=== PATIENT | male | born 1945 | race Caucasian/White ===

== ENCOUNTER → 2016-11-16 | Outpatient (CLI) | payer MEDICARE, BC ==
[~2016-11-16] MED LIST: ABILIFY2 MG PO; ABILIFY20 MG PO; AMOXICILLIN 8751 TAB PO; ASPIR-LOW81 MG PO; ASPIRIN 32325 MG/TAB PO; ASPIRIN 81M81 MG/TA2 PO; ASPIRIN E.C. 8181 MG PO; AVELOX 400MG T400 MG PO; CALCIUM WITH VI1 TAB PO; CEPHALEXIN250 M1 PO; CEPHALEXIN500 M1 PO; CIPRO 500MG TA500 MG PO; COLACE 100100 MG/CAP PO; CRANBERRY1 CAP PO; CRESTOR20 MG PO; DEPO-TESTOS200 MG/M1 IM; DESYREL 100MG100 MG PO; DILAUDID 2MG TAB2 MG PO; DILAUDID 4MG TAB4 MG PO; FLAGYL500 MG PO; LEVAQUIN 5500 MG/TA1 PO; MACRODANTIN50 MG/CA1 PO; MIRALAX PA17 GM/Dose PO; MULTIPLE VITAMI1 CAP PO; NAPROSYN; NAPROSYN 2250 MG/TAB PO; NORCO 325 MG-51 TAB PO; OMNICEF 300MG300 MG PO; PERCOCET 325 MG1 TA2 PO; PHENERGAN 25 TA25 MG PO; PRIL40; PRILOSEC 20MG20 MG PO; RANITIDINE150 MG PO; SIMVASTATIN40 MG PO; STOOL SOFTENER100 M1 PO; TRAZADONE HYDR100 MG PO; TRAZODONE HCL100 MG PO; TRAZODONE100 MG PO; TYLENOL 325MG325 MG PO; TYLENOL 500MG500 MG PO; ULTRAM 50MG TAB50 MG PO; VICODIN 5/5001 UDTAB PO; VIIBRYD10 MG PO; VITAMIN C500 MG PO; WELLBUTRIN XL300 M1 PO; WELLBUTRIN XL300 MG PO; XANAX .25M0.25 MG/TA PO; ZANTAC 150MG T150 MG PO; ZOCOR 20MG20 MG PO; ZYRTEC 10MG10 MG PO; ZYRTEC10 MG PO
== END ==
LOC: COL.RAD 14:24
DX: K57.30 Diverticulosis of large intestine without perforation or abscess without bleeding (principal); R10.84 Generalized abdominal pain; Z90.5 Acquired absence of kidney; Z90.6 Acquired absence of other parts of urinary tract

== ENCOUNTER → 2017-04-13 | Outpatient (CLI) | payer MEDICARE, BC | LOC: BHSO 14:24 | DX: F41.1 Generalized anxiety disorder (principal) ==

== ENCOUNTER → 2017-06-11 | Outpatient (CLI) | payer MEDICARE, BC ==
[2017-06-11 17:43] LABS: CREATININE, serum 1.28 mg/dL (0.66-1.25)
== END ==
LOC: COL.LAB 17:03
PROVIDERS: Otolaryngology
DX: H92.01 Otalgia, right ear (principal)

== ENCOUNTER → 2018-06-12 | Outpatient (CLI) | payer MEDICARE, BC | LOC: BHSO 09:03 | DX: F33.41 Major depressive disorder, recurrent, in partial remission (principal) | CPT/HCPCS: G0463 ==

== ENCOUNTER → 2018-08-08 | Outpatient (CLI) | payer MEDICARE, BC | LOC: BHSO 10:59 | DX: F33.1 Major depressive disorder, recurrent, moderate (principal) | CPT/HCPCS: G0463 ==

== ENCOUNTER → 2018-12-04 | Outpatient (CLI) | payer MEDICARE, BC | LOC: BHSO 11:21 | DX: F33.42 Major depressive disorder, recurrent, in full remission (principal) | CPT/HCPCS: G0463 ==

== ENCOUNTER → 2018-12-05 | Outpatient (CLI) | payer MEDICARE, BC | LOC: COL.RAD 09:00 | DX: Z85.51 Personal history of malignant neoplasm of bladder (principal); Z90.49 Acquired absence of other specified parts of digestive tract; Z90.5 Acquired absence of kidney ==

== ENCOUNTER → 2019-02-19 | Outpatient (CLI) | payer MEDICARE, BC | LOC: COL.RAD 13:33 | DX: R10.30 Lower abdominal pain, unspecified (principal); Z90.5 Acquired absence of kidney; Z90.49 Acquired absence of other specified parts of digestive tract ==

== ENCOUNTER → 2019-02-26 | Outpatient (CLI) | payer MEDICARE, BC | LOC: BHSO 13:27 | DX: F33.41 Major depressive disorder, recurrent, in partial remission (principal) | CPT/HCPCS: G0463 ==

== ENCOUNTER 2019-04-06 11:45 | Emergency (ER) | payer MEDICARE, BC ==
[~2019-04-06] VITALS: Ht 175.3 cm; Wt 89.5 kg
[2019-04-06] MEDS ORDERED: EFFEXOR-XR150 MG PO (12:07)
[2019-04-06] MEDS ORDERED: LINZESS72 MCG PO (12:09)
[2019-04-06] MEDS ORDERED: LAMICTAL ODT100 MG (12:10)
[2019-04-06] MEDS ORDERED: AMBIEN CR 12.12.5 MG PO (12:31)
[2019-04-06 12:42] LABS: BASO % 0.2 % (0.0-2.0); EOS % 0.5 % (0-4.0); GRAN # 6.6 (1.4-6.5); GRAN % 80.1 % (42.2-75.2); HEMATOCRIT 40.5 % (42.0-52.0); HEMOGLOBIN 13.8 g/dl (13.5-18.0); LYMPH # 0.8 (1.2-3.4); LYMPH % 9.9 % (20.0-51.0); MEAN CELL VOLUME 87 fl (80.0-100.0); MEAN CORPUSCULAR HEMOGLOBIN 30 pg (27.0-31.0); MEAN CORPUSCULAR HGB CONC 34 g/dl (33.0-37.0); MONO # 0.7 (0.1-0.6); MONO % 8.8 % (1.7-9.3); PLATELET COUNT 169 K/mm3 (130-400); RED BLOOD COUNT 4.65 M/mm3 (4.20-5.60); REDCELL DISTRIBUTION WIDTH-CV 13.5 % (11.5-14.5)
[2019-04-06 12:49] LABS: BILIRUBIN,TOTAL 1.4 mg/dL (0.0-1.0); CALCIUM 8.8 mg/dL (8.4-10.2); CREATININE, serum 1.14 (0.66-1.25); POTASSIUM 4.5 mmol/L (3.4-5.0); TOTAL PROTEIN 6.8 gm/dL (6.4-8.2)
[2019-04-06 13:33] LABS: COLLECTION METHOD CLEAN CATCH
[2019-04-06 13:41] LABS: PH 7 (5-8); SQUAMOUS EPITHELIAL None Seen /hpf; URINE APPEARANCE Clear; URINE BACTERIA None Seen /hpf; URINE BILIRUBIN Negative (NEGATIVE); URINE BLOOD Negative (NEGATIVE); URINE COLOR Straw; URINE GLUCOSE Negative (NEGATIVE); URINE KETONE Negative (NEGATIVE); URINE LEUKOCYTE ESTERASE Negative (NEGATIVE); URINE NITRATE Negative (NEGATIVE); URINE PROTEIN(semi-quant) Negative (NEGATIVE); URINE RBC 0-2 /hpf; URINE UROBILINOGEN Negative (NEGATIVE)
[2019-04-06] MEDS ORDERED: AVELOX 400MG T400 MG PO ×3 (14:52→15:57)
[2019-04-06 15:04] VITALS: BP 153/87; PULSE 84; TEMP 98.6
== END 2019-04-06 16:06 | disposition home or self-care (01) ==
LOC: COL.ER 11:45
PROVIDERS: Emergency Medicine
DX: K57.92 Diverticulitis of intestine, part unspecified, without perforation or abscess without bleeding (principal); Z79.82 Long term (current) use of aspirin
CPT/HCPCS: J1170; J3010; J7030; Q9967

== ENCOUNTER → 2019-06-04 | Outpatient (CLI) | payer MEDICARE, BC ==
[~2019-06-04] MED LIST changes: +AMBIEN CR 12.12.5 MG PO; +EFFEXOR-XR150 MG PO; +LAMICTAL ODT100 MG; +LINZESS72 MCG PO
== END ==
LOC: BHSO 09:57
DX: F33.42 Major depressive disorder, recurrent, in full remission (principal)
CPT/HCPCS: G0463

== ENCOUNTER 2019-06-21 05:56 | Emergency (ER) | payer MEDICARE, BC ==
[~2019-06-21] VITALS: Ht 175.3 cm; Wt 86.4 kg
[2019-06-21 06:00] VITALS: TEMP 97.8
[2019-06-21 06:50] LABS: COLLECTION METHOD UROSTOMY
[2019-06-21 06:55] LABS: BASO % 0.4 % (0.0-2.0); EOS # 0.1 (0.0-0.7); EOS % 1.8 % (0-4.0); GRAN % 70.2 % (42.2-75.2); HEMATOCRIT 39.7 % (42.0-52.0); HEMOGLOBIN 13.9 g/dl (13.5-18.0); LYMPH % 17.3 % (20.0-51.0); MEAN CELL VOLUME 90 fl (80.0-100.0); MEAN CORPUSCULAR HEMOGLOBIN 31 pg (27.0-31.0); MEAN CORPUSCULAR HGB CONC 35 g/dl (33.0-37.0); MEAN PLATELET VOLUME 9.8 fl (7.4-10.4); MONO # 0.6 (0.1-0.6); MONO % 9.8 % (1.7-9.3); PLATELET COUNT 165 K/mm3 (130-400); RED BLOOD COUNT 4.43 M/mm3 (4.20-5.60); REDCELL DISTRIBUTION WIDTH-CV 13.1 % (11.5-14.5)
[2019-06-21 07:11] LABS: ALBUMIN 4.1 gm/dL (3.5-5.0); BILIRUBIN,TOTAL 1.6 mg/dL (0.0-1.0); C-REACTIVE PROTEIN 1.6 mg/dL (0.0-0.9); CREATININE, serum 1.04 (0.66-1.25); POTASSIUM 4.3 mmol/L (3.4-5.0); TOTAL PROTEIN 6.8 gm/dL (6.4-8.2)
[2019-06-21 07:19] LABS: MUCOUS Present /lpf; PH 7 (5-8); SQUAMOUS EPITHELIAL None Seen /hpf; URINE APPEARANCE Clear; URINE BACTERIA Rare /hpf; URINE BILIRUBIN Negative (NEGATIVE); URINE BLOOD Negative (NEGATIVE); URINE COLOR Yellow; URINE GLUCOSE Negative (NEGATIVE); URINE KETONE Negative (NEGATIVE); URINE LEUKOCYTE ESTERASE Negative (NEGATIVE); URINE NITRATE Positive (NEGATIVE); URINE PROTEIN(semi-quant) Negative (NEGATIVE); URINE UROBILINOGEN Negative (NEGATIVE)
[2019-06-21] MEDS ORDERED: AVELOX 400MG T400 MG PO (08:40)
[2019-06-21] MEDS ORDERED: ZOFRAN ODT4 MG PO (08:40)
[2019-06-21] MEDS ORDERED: NORCO 325 MG-51 TAB PO (08:41)
[2019-06-21 09:15] VITALS: BP 103/79; PULSE 75
== END 2019-06-21 09:15 | disposition home or self-care (01) ==
LOC: COL.ER 05:56
PROVIDERS: Emergency Medicine
DX: K57.32 Diverticulitis of large intestine without perforation or abscess without bleeding (principal); E78.5 Hyperlipidemia, unspecified; Z79.82 Long term (current) use of aspirin; Z87.19 Personal history of other diseases of the digestive system; Z90.5 Acquired absence of kidney; Z90.6 Acquired absence of other parts of urinary tract; Z98.890 Other specified postprocedural states
CPT/HCPCS: J1170; J2405; J7030; Q9967

== ENCOUNTER 2019-08-27 06:40 | Outpatient (CLI) | payer MEDICARE, BC ==
[2019-08-27] VITALS (13 sets, daily range): BP systolic 110–173; BP diastolic 70–94; PULSE 75–98
[~2019-08-27] VITALS: Ht 175.3 cm; Wt 87.3 kg
[~2019-08-27 06:40] MED LIST changes: +LAMICTAL150 MG PO; +ZOFRAN ODT4 MG PO
--- NOTE | 2019-08-27 08:08 | NUR ---
PT BROUGHT INTO THE CT ROOM AND POSITIONED ON THE BED. MONITORING EQUIPMENT PLACED. IMAGES TAKEN
--- NOTE | 2019-08-27 08:18 | NUR ---
VERSED 1 MG AND FENTANYL 50MCG GIVEN
--- NOTE | 2019-08-27 08:33 | NUR ---
PT TRANSFERED HIMSELF TO CART. SITE IS CDI WITH TWO BANDAIDES IN PLACE AFTER ALL MONITORING EQUIPMENT REMOVED. PT TAKEN TO IMCU 15 AND REPORT TO APURVA
--- NOTE | 2019-08-27 10:55 | NUR ---
Pt was given the okay to be discharged by Dr. Perez. I review written dc instructions r/t return precautions related to his procedure. pt denied any questions. He was ambulatory in the unit with a steady gait, was able to void, and able to drink water with no problem. pt was p,w,d with reg and unlabored resps at time of departure. he did have a little cough, and some pain with that cough. IV was dc'd, cath intact, dressing applied. Pt was escorted to exit via wheelchair. driving pt home.
== END 2019-08-27 10:55 | disposition home or self-care (01) ==
LOC: COL.RAD 06:40
DX: R91.1 Solitary pulmonary nodule (principal)
CPT/HCPCS: J2250; J3010

== ENCOUNTER → 2019-09-08 | Outpatient (CLI) | payer MEDICARE, BC | LOC: COL.RAD 10:24 | DX: Z01.812 Encounter for preprocedural laboratory examination (principal); C34.90 Malignant neoplasm of unspecified part of unspecified bronchus or lung; C66.1 Malignant neoplasm of right ureter; I67.82 Cerebral ischemia; J34.89 Other specified disorders of nose and nasal sinuses | CPT/HCPCS: A9585 ==

== ENCOUNTER 2019-10-28 21:33 | Emergency (ER) | payer MEDICARE, BC ==
[~2019-10-28] VITALS: Ht 172.7 cm; Wt 89.1 kg
[2019-10-28 21:39] VITALS: TEMP 98.3
[2019-10-28 22:42] LABS: BASO % 0.4 % (0.0-2.0); EOS # 0.1 (0.0-0.7); EOS % 1.3 % (0-4.0); GRAN # 3.3 (1.4-6.5); GRAN % 62.4 % (42.2-75.2); HEMATOCRIT 39.6 % (42.0-52.0); HEMOGLOBIN 13.7 g/dl (13.5-18.0); LYMPH # 1.3 (1.2-3.4); LYMPH % 24.1 % (20.0-51.0); MEAN CELL VOLUME 89 fl (80.0-100.0); MEAN CORPUSCULAR HEMOGLOBIN 31 pg (27.0-31.0); MEAN CORPUSCULAR HGB CONC 35 g/dl (33.0-37.0); MEAN PLATELET VOLUME 10.2 fl (7.4-10.4); MONO # 0.6 (0.1-0.6); MONO % 11.2 % (1.7-9.3); PLATELET COUNT 169 K/mm3 (130-400); RED BLOOD COUNT 4.46 M/mm3 (4.20-5.60); REDCELL DISTRIBUTION WIDTH-CV 12.5 % (11.5-14.5)
[2019-10-28 22:55] LABS: ALANINE AMINOTRANSFERASE 41 U/L (21-72); ALBUMIN 4.1 gm/dL (3.5-5.0); ALKALINE PHOSPHATASE 46 U/L (50-136); ANION GAP 7 mmol/L (7-16); AST,SGOT 33 U/L (15-37); BILIRUBIN,TOTAL 0.8 mg/dL (0.0-1.0); BLOOD UREA NITROGEN 18 mg/dL (9-20); CALCIUM 9.2 mg/dL (8.4-10.2); CARBON DIOXIDE 26 mmol/L (22-30); CHLORIDE 102 mmol/L (98-107); CREATININE, serum 1.44 (0.66-1.25); GLUCOSE 108 mg/dL (74-106); LIPASE 260 U/L (23-300); POTASSIUM 4.3 mmol/L (3.4-5.0); SODIUM 135 mmol/L (137-145); TOTAL PROTEIN 6.7 gm/dL (6.4-8.2)
[2019-10-28 22:57] LABS: C-REACTIVE PROTEIN < 0.5 mg/dL (0.0-0.9)
[2019-10-28 23:05] LABS: TROPONIN-I < 0.012 ng/mL (0.000-0.035)
[2019-10-29 01:30] VITALS: BP 158/78; PULSE 78
== END 2019-10-29 01:30 | disposition home or self-care (01) ==
LOC: COL.ER 21:33
PROVIDERS: Emergency Medicine
DX: R07.89 Other chest pain (principal); E78.00 Pure hypercholesterolemia, unspecified; Z87.891 Personal history of nicotine dependence; Z90.89 Acquired absence of other organs; Z85.51 Personal history of malignant neoplasm of bladder

== ENCOUNTER → 2019-11-26 | Outpatient (CLI) | payer MEDICARE, BC | LOC: BHSO 13:57 | DX: F41.1 Generalized anxiety disorder (principal) | CPT/HCPCS: G0463 ==

== ENCOUNTER → 2020-03-22 | Outpatient (CLI) | payer MEDICARE, BC | LOC: COL.RAD 12:37 | DX: R59.0 Localized enlarged lymph nodes (principal) ==

== ENCOUNTER → 2020-06-02 | Outpatient (CLI) | payer MEDICARE, BC | LOC: BHSO 13:58 | DX: F33.42 Major depressive disorder, recurrent, in full remission (principal) | CPT/HCPCS: G0463 ==

== ENCOUNTER → 2020-06-09 | Outpatient (CLI) | payer MEDICARE, BC | LOC: COL.LAB 10:00 | DX: Z20.828 Contact with and (suspected) exposure to other viral communicable diseases (principal) ==

== ENCOUNTER 2020-10-17 20:48 | Emergency (ER) | payer MEDICARE, BC ==
[~2020-10-17] VITALS: Ht 175.3 cm; Wt 88.6 kg
[2020-10-17 20:53] VITALS: TEMP 98.1
[2020-10-17 21:27] LABS: ALANINE AMINOTRANSFERASE 30 U/L (4-49); ALBUMIN 4.3 gm/dL (3.5-5.0); ALKALINE PHOSPHATASE 48 U/L (50-136); ANION GAP 9 mmol/L (7-16); AST,SGOT 36 U/L (15-37); BILIRUBIN,TOTAL 0.5 mg/dL (0.0-1.0); BLOOD UREA NITROGEN 16 mg/dL (9-20); CALCIUM 9.3 mg/dL (8.4-10.2); CARBON DIOXIDE 26 mmol/L (22-30); CHLORIDE 100 mmol/L (98-107); CREATININE, serum 1.21 (0.66-1.25); GLUCOSE 91 mg/dL (74-106); POTASSIUM 4.2 mmol/L (3.4-5.0); SODIUM 135 mmol/L (137-145); TOTAL PROTEIN 6.9 gm/dL (6.4-8.2)
[2020-10-17 21:32] LABS: BASO % 0.6 % (0.0-2.0); EOS # 0.1 (0.0-0.7); EOS % 1.9 % (0-4.0); GRAN % 61.3 % (42.2-75.2); HEMOGLOBIN 11.8 g/dl (13.5-18.0); LYMPH # 1.7 (1.2-3.4); LYMPH % 26.4 % (20.0-51.0); MEAN CELL VOLUME 83 fl (80.0-100.0); MEAN CORPUSCULAR HEMOGLOBIN 27 pg (27.0-31.0); MEAN CORPUSCULAR HGB CONC 33 g/dl (33.0-37.0); MEAN PLATELET VOLUME 9.7 fl (7.4-10.4); MONO # 0.6 (0.1-0.6); MONO % 9.3 % (1.7-9.3); PLATELET COUNT 219 K/mm3 (130-400); RED BLOOD COUNT 4.35 M/mm3 (4.20-5.60); REDCELL DISTRIBUTION WIDTH-CV 14.6 % (11.5-14.5)
[2020-10-17 21:39] LABS: TROPONIN-I < 0.012 ng/mL (0.000-0.035)
[2020-10-17 22:39] VITALS: BP 150/95; PULSE 89
== END 2020-10-17 22:44 | disposition home or self-care (01) ==
LOC: COL.ER 20:48
PROVIDERS: Emergency Medicine
DX: R07.9 Chest pain, unspecified (principal); Z93.6 Other artificial openings of urinary tract status; E78.5 Hyperlipidemia, unspecified; Z85.46 Personal history of malignant neoplasm of prostate; Z85.51 Personal history of malignant neoplasm of bladder; Z85.528 Personal history of other malignant neoplasm of kidney; Z87.891 Personal history of nicotine dependence; Z90.89 Acquired absence of other organs; Z88.1 Allergy status to other antibiotic agents

== ENCOUNTER → 2021-03-02 | Outpatient (CLI) | payer MEDICARE, BC | LOC: COL.RAD 11:03 | DX: C34.92 Malignant neoplasm of unspecified part of left bronchus or lung (principal); Z90.5 Acquired absence of kidney; Z98.890 Other specified postprocedural states ==

== ENCOUNTER → 2021-09-01 | Outpatient (CLI) | payer MEDICARE, BC | LOC: COL.RAD 08:23 | DX: C34.92 Malignant neoplasm of unspecified part of left bronchus or lung (principal); I62.9 Nontraumatic intracranial hemorrhage, unspecified | CPT/HCPCS: Q9967 ==

== ENCOUNTER → 2023-02-22 | Outpatient (CLI) | payer MEDICARE, BC | LOC: COL.VAS 13:10 | DX: I35.0 Nonrheumatic aortic (valve) stenosis (principal); I51.7 Cardiomegaly; I49.5 Sick sinus syndrome ==

== ENCOUNTER 2024-04-16 23:02 | Inpatient (IN) | payer MEDICARE, BC ==
[~2024-04-16] VITALS: Ht 175.3 cm; Wt 91.2 kg
[~2024-04-16 23:02] MED LIST changes: +FLEXERIL 1010 MG/TAB PO
[2024-04-16] MEDS ORDERED: LR 1,000 ML IV ONE (23:15)
[2024-04-16] MEDS ORDERED: Acetaminophen 500 MG TAB PO ONE (23:15)
[2024-04-16] MEDS ORDERED: Ibuprofen 600 MG TAB PO ONE (23:15)
[2024-04-16 23:27] LABS: COLLECTION METHOD UROSTOMY
[2024-04-16 23:30] LABS: BASO % 0.3 % (0.0-2.0); EOS % 0.3 % (0.0-4.0); GRAN % 67.6 % (42.2-75.2); LYMPH % 16.4 % (20.0-51.0); MEAN CELL VOLUME 88 fl (80.0-100.0); MEAN CORPUSCULAR HEMOGLOBIN 30 pg (27-31); MEAN CORPUSCULAR HGB CONC 34 g/dl (33.0-37.0); MEAN PLATELET VOLUME 10.5 fl (7.4-10.4); MONO # 0.9 K/mm3 (0.1-0.6); MONO % 14.7 % (1.7-9.3); PLATELET COUNT 145 K/mm3 (130-400); REDCELL DISTRIBUTION WIDTH-CV 12.5 % (11.5-14.5)
[2024-04-16 23:41] LABS: URINE APPEARANCE CLEAR (CLEAR/HAZY); URINE BLOOD NEGATIVE (NEGATIVE); URINE COLOR YELLOW (YELLOW); URINE GLUCOSE NEGATIVE (NEGATIVE); URINE KETONE NEGATIVE (NEGATIVE); URINE NITRATE POSITIVE (NEGATIVE); URINE PROTEIN(semi-quant) NEGATIVE (NEGATIVE)
[2024-04-16 23:53] LABS: ALBUMIN 3.9 g/dL (3.4-4.8); C-REACTIVE PROTEIN 7.04 mg/dL (0.00-0.50); CALCIUM 8.7 mg/dL (8.4-10.2); CREATININE, serum 1.32 mg/dL (0.72-1.25); POTASSIUM 4.1 mEq/L (3.5-4.5)
[2024-04-16 23:59] LABS: TROPONIN-I 0.014 ng/mL (0.00-0.033)
[2024-04-17] VITALS (10 sets, daily range): BP systolic 131–161; BP diastolic 61–81; PULSE 64–77; TEMP 97.6–98.8
[2024-04-17] MEDS ORDERED: NS 50 ML IV SCH (00:20)
[2024-04-17] MEDS ORDERED: Iohexol 300 - 100 ML VIAL IV ONE (00:20)
[2024-04-17] MEDS ORDERED: cefTRIAXone 2 G in Water For Injection,Sterile 20 ML IV ONE (01:45)
[2024-04-17] MEDS ORDERED: Acetaminophen 325 MG TAB PO PRN (03:30)
[2024-04-17] MEDS ORDERED: Albuterol 90 MCG/PUFF 8 GM MDI IH PRN (03:30)
[2024-04-17] MEDS ORDERED: NS 1,000 ML IV SCH (03:30)
[2024-04-17] MEDS ORDERED: NEURONTIN300 MG/CAP PO (03:30)
--- NOTE | 2024-04-17 03:50 | NUR ---
PATIENT ARRIVED TO ROOM 308 VIA BED FROM ED. INITIATED DROPLET PRECAUTIONS AND ORIENTED PATIENT TO ROOM. HE IS ON 1L O2 VIA NASAL CANNULA. PATIENT IS ALERT AND ORIENTED BUT IS HARD OF HEARING, TOOK HEARING AIDS HOME TO CHARGE. INSTRUCTED OR RN LIGHT USE AND ENSURED CALL LIGHT IS WITHIN REACH. HE DOES HAVE UROSTOMY WHICH HAS BEEN ATTACHED TO DEPENDANT DRAINAGE BAG. DENIES ANY SHORTNESS OF BREATH, HE DOES HAVE A MILD COUGH BUT STATES IT HAS NOT BEEN PRODUCTIVE. BED IS LOCKED AND IN LOW POSITION.
[2024-04-17 03:53] LABS: INR 1.1 (0.8-3.0); PROTHROMBIN TIME 12.5 SECONDS (9.7-12.8)
[2024-04-17] MEDS ORDERED: Doxycycline Hyclate 100 MG in NS 150 ML IV SCH (04:00)
--- NOTE | 2024-04-17 06:22 | NUR ---
SURGICAL CONSULT CALLED TO DR. LENNON.
[2024-04-17] MEDS ORDERED: Albuterol 90 MCG/PUFF 8 GM MDI IH SCH (08:00)
--- NOTE | 2024-04-17 08:13 | NUR ---
PATIENT RESTING IN BED. ALERT AND ORIENTED. SHIFT ASSESSMENT COMPLETE. PATIENT REFUSED LOVENOX INJ. THIS RN EXPLAINED THE PURPOSE AND IMPORTANCE OF MEDICATION. PATIENT STATES "WELL I'M NOT GOING TO BE IN BED ALL DAY!" THIS NURSE DOCUMENTED REFUSAL IN DEC. DENIES PAIN OR DISCOMFORT. CALL LIGHT WITHIN REACH.
[2024-04-17] MEDS ORDERED: Pantoprazole 40 MG in NS 10 ML IV SCH (09:00)
--- NOTE | 2024-04-17 10:13 | NUR ---
THIS RN NOTIFIED DR VICTORIA OF CONSULT ORDERED BY DR HOOPER. HE SAID HE WILL SEE PATIENT TOMORROW.
[2024-04-17] MEDS ORDERED: Cyclobenzaprine 10 MG TAB PO PRN (10:15)
--- NOTE | 2024-04-17 11:28 | NUR ---
industrial services worker noted pt is in isolation precautions. GAEL found pt's , Sarahy [phone] in [place] to discuss intake information. She reports to live with pt in [place]. He sees Dr. Gonzales for PCP needs and has an appointment 04/24/24. He obtains medications from [facility] with no difficulties. He has a DPOA-HC on file listing his and daughter,Patricia. Sarahy reports Patricia is a hospice nurse. Pt was previously independent with [facility] and uses a CPAP for DME. 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 She reports pt has had a lot of falls and this is also why she brought him in. GAEL discussed therapy need and how they will make a recomendation for a safe discharge whether that is SNF or HH. She verbalized understanding of this. Discharge Plan: [facility]
[2024-04-17] MEDS ORDERED: Gabapentin 300 MG CAP PO SCH (14:00)
[2024-04-17] MEDS ORDERED: Atorvastatin 10 MG TAB PO SCH (21:00)
[2024-04-17] MEDS ORDERED: Simvastatin 20 MG **** subs to Atorvastatin 10 MG PO SCH (21:00)
[2024-04-18] VITALS: BP_SYST 145
[2024-04-18] MEDS ORDERED: cefTRIAXone 2 G in Water For Injection,Sterile 20 ML IV SCH (02:00)
--- NOTE | 2024-04-18 07:00 | NUR ---
PATIENT UPSET FIRST THING THIS AM. WANTS TO GO HOME BECAUSE HE SAYS "I FEEL LIKE THERE'S NOTHING LEFT FOR THEM TO DO FOR ME HERE." THIS NURSE REASSURED PATIENT THAT DR VICTORIA WOULD BE IN TO SEE HIM AT SOME POINT TODAY. PATIENT IN AGREEMENT.
[2024-04-18] MEDS ORDERED: CEFTIN 250250 MG/TAB PO (08:36)
[2024-04-18] MEDS ORDERED: DOXYCYCLINE HY100 MG PO (08:36)
[2024-04-18 08:52] VITALS: BP 152/71; PULSE 89; TEMP 98.2
--- NOTE | 2024-04-18 08:54 | NUR ---
THIS RN DISCONTINUED BOTH IV SITES FOR DISCHARGE. LEFT AC CDI. RIGHT AC HAD MILD AMOUNT OF BLEEDING. MANNUAL PRESSURE APPLIED, THEN PRESSURE DRSG APPLIED. PATIENT TOLERATED WELL.
[2024-04-18 08:58] VITALS: BP_SYST 152
[2024-04-18] MEDS ORDERED: Cetirizine 10 MG TAB PO SCH (09:00)
--- NOTE | 2024-04-18 09:18 | NUR ---
THIS NURSE GAVE PATIENT DISCHARGE INSTRUCTION AND EDUCATION. ALL QUESTIONS ANSWERED.
--- NOTE | 2024-04-18 09:39 | NUR ---
THIS RN ESCORTED PATIENT OFF UNIT. HAS ALL BELONGINGS.
== END 2024-04-18 09:35 | disposition home or self-care (01) | DRG 871 ==
LOC: COL.ER 23:02 → MEDICAL 04-17 03:06
PROVIDERS: Emergency Medicine; Nurse Practitioner Family; ADMIT Internal Medicine
DX: A41.9 Sepsis, unspecified organism (principal); G93.41 Metabolic encephalopathy; U07.1 COVID-19; N39.0 Urinary tract infection, site not specified; C34.92 Malignant neoplasm of unspecified part of left bronchus or lung; E87.1 Hypo-osmolality and hyponatremia; R53.81 Other malaise; N28.1 Cyst of kidney, acquired; N18.9 Chronic kidney disease, unspecified; D64.9 Anemia, unspecified; E78.5 Hyperlipidemia, unspecified; R06.81 Apnea, not elsewhere classified
CPT/HCPCS: J0696; J2470; J7030; J7120; Q9967

== ENCOUNTER → 2024-04-24 | Outpatient (CLI) | payer MEDICARE, BC ==
[~2024-04-24] MED LIST changes: +CEFTIN 250250 MG/TAB PO; +DOXYCYCLINE HY100 MG PO; +NEURONTIN300 MG/CAP PO
[2024-04-24 22:20] LABS: EOSINOPHIL 1 % (0-4); LYMPHOCYTE 33 % (20.0-51.0); METAMYELOCYTE 1 % (0-0); MYELOCYTE 4 % (0-0); NEUTROPHILS 54 % (42.0-75.2)
== END ==
LOC: ZCOL.LAB 18:03
PROVIDERS: Family Medicine
DX: D09.0 Carcinoma in situ of bladder (principal)

== ENCOUNTER → 2024-05-05 | Outpatient (CLI) | payer MEDICARE, BC | LOC: COL.RAD 12:44 | DX: N28.9 Disorder of kidney and ureter, unspecified (principal); N39.0 Urinary tract infection, site not specified; Z85.53 Personal history of malignant neoplasm of renal pelvis ==

== ENCOUNTER → 2024-06-13 | Outpatient (CLI) | payer MEDICARE, BC | LOC: MHCPAIN 09:28 | DX: M47.812 Spondylosis without myelopathy or radiculopathy, cervical region (principal); M48.02 Spinal stenosis, cervical region | CPT/HCPCS: G0463 ==